=== PATIENT | male | born 1960 | race Caucasian/White ===

== ENCOUNTER → 2016-11-29 | Day surgery (SDC) | payer MEDICAID ==
[~2016-11-29] MED LIST: ALLERGY10 M1 PO; ASPIRIN PO; BASAGLAR K100 UNIT/1 SUBQ; CLOPIDOGREL BIS75 MG PO; CRESTOR PO; EFFEXOR; EXCEDRIN EXTRA1 EAC3 PO; FENOFIBRATE160 MG PO; FLEXERIL10 MG PO; GABAPENTIN600 MG PO; LEVOTHYROXINE100 MCG PO; METFORMIN; SERTRALINE HCL100 MG PO; SYNTHROID; WELLBUTRIN PO; [UNRECOGNIZED DRUG - OTHER] PO
--- NOTE | ~2016-11-29 | OR ---
Unit #: [id number] #: [id number] Patient: DMITRIY ECHOLS [id number] [address] [address] [id number] O MR#: [id number] NAME: DMITRIY ECHOLS. ROOM: Date of Procedure: 11/29/2016 Admission Date: 11/29/2016 Surgeon: Brad Juan M.D. : 1960 Attending Physician: Brad Juan M.D. Primary Care Physician: [facility] OPERATIVE REPORT PROCEDURE PERFORMED Colonoscopy to cecum. INDICATIONS FOR PROCEDURE A 56-year-old gentleman positive for FIT test, undergoing colonoscopy. MEDICATIONS Monitored anesthesia. POSTOPERATIVE FINDINGS 1. Normal exam to the cecum. Prep was good. 2. No polyps, masses, or colitis. PLAN Repeat colonoscopy in 10 years. DESCRIPTION OF PROCEDURE The patient was explained of the procedure, risks, and benefits along with risks and benefits of anesthesia. He was brought to the endoscopy room. Propofol anesthesia was given. Rectal exam was done, which was normal. Colonoscope was lubricated, passed up the rectum, advanced under direct vision all the way to the cecum. Cecum was identified by ileocecal valve and appendiceal orifice. I then started to pull the scope out carefully looking. No polyps, masses, or colitis was seen. Mucosa was normal and healthy. Gently, the scope was pulled out. He tolerated it well. No major complications were seen. Dictated by... Gilbert Palm/ilene TD: 12/05/2016 11:57 JOB #: [id number] Unit #: [id number] #: [id number] Patient: DMITRIY ECHOLS OPERATIVE REPORT Page 1 of 1 X Brad Juan MD X PROCEDURE OPERATIVE NOTE
[2016-11-29 09:33] LABS: BASOPHIL# 0.1 X10e3 (0-0.3); EOSINOPHIL# 0.3 X10e3 (0-0.7); EOSINOPHIL% 4.9 % (0.0-7.0); HEMATOCRIT 44.1 % (38.0-50.0); HEMOGLOBIN 15.1 gm/dL (13.0-16.0); LYMPHOCYTE# 1.8 X10e3 (1.0-3.5); LYMPHOCYTE% 29.4 % (17.0-45.0); MEAN CELL VOLUME 93.5 FL (83-96); MEAN CORPUSCULAR HGB CONC 34.2 g/dL (30-36); MEAN PLATELET VOLUME 8.1 FL (6.5-11.5); MONOCYTE# 0.9 X10e3 (0-1.0); MONOCYTE% 14.8 % (3.0-12.0); NEUTROPHIL% 49.9 % (40-75); PLATELET COUNT 247 X10e3 (140-420); RED BLOOD COUNT 4.72 X10e (3.90-5.60); RED CELL DISTRIBUTION WIDTH 13.9 % (11.0-15.5); WHITE BLOOD COUNT 6.1 X10e3 (4.0-10.5)
[2016-11-29 09:35] LABS: DIFF IND NO
== END | disposition home or self-care (01) ==
LOC: COPS 06:59
PROVIDERS: Internal Medicine
DX: R19.5 Other fecal abnormalities (principal); I25.2 Old myocardial infarction; E11.9 Type 2 diabetes mellitus without complications; G47.30 Sleep apnea, unspecified; E03.9 Hypothyroidism, unspecified; Z79.02 Long term (current) use of antithrombotics/antiplatelets; Z79.4 Long term (current) use of insulin; Z79.899 Other long term (current) drug therapy; Z95.5 Presence of coronary angioplasty implant and graft; Z98.52 Vasectomy status; Z98.890 Other specified postprocedural states
CPT/HCPCS: 82947; 85025; J2250